=== PATIENT | female | born 2000 | race Caucasian/White ===

== ENCOUNTER 2018-01-12 21:23 | Emergency (ER) | payer BC ==
[~2018-01-12] VITALS: Ht 165.1 cm; Wt 65.4 kg
[2018-01-12 21:31] VITALS: TEMP 37.1; Ht 165.1 cm; Wt 65.4 kg
[2018-01-12] MEDS ORDERED: DEXT30LI4 PO (22:52)
--- NOTE | 2018-01-12 23:16 | DIAGNOSTIC IMAGING REPORT ---
CHEST ONE VIEW PORTABLE CLINICAL HISTORY: cough, fever COMPARISON STUDY: No previous studies for comparison. FINDINGS: Lung volumes are normal. No pneumothorax or pleural effusion is noted. Cardiac size is normal. Mediastinal contours are normal. Apparent mild right lower lung airspace opacity. The left lung is clear. IMPRESSION: Suspected mild right lower lung airspace opacity which favors pneumonia. Electronically signed by: Felix Stephens M.D. 01/12/2018 11:15 PM Dictated Date/Time: 01/12/2018 11:14 PM
[2018-01-12 23:28] LABS: INFLUENZA B ANTIGEN Neg for Influ B (NEG)
[2018-01-12] MEDS ORDERED: AZITHROMYCIN 250 MG TAB PO STA (23:54)
[2018-01-13] MEDS ORDERED: AZIT-60 PO (00:05)
[2018-01-13 00:06] VITALS: BP 127/73; PULSE 85; O2SAT 100
--- NOTE | 2018-01-13 02:34 | EMERGENCY ROOM VISIT NOTE ---
History Report prepared by Manisha: Sebastian Montoay Under the Supervision of: Dr. Boubacar Patel M.D. First contact with patient: 22:33 Chief Complaint: FEVER Stated Complaint: FEVER, COUGH History of Present Illness The patient is a 17 year old female who presents to the Emergency Room with complaints of persistent fever since this evening. She reports being sick intermittently for three weeks. She states that she was waiting in line at [employer] and she became dizzy and lightheaded. Per mother, the patient had tried to gain an appointment with [facility], though was unsuccessful. She has a history of strep throat, scarlet fever, and an associated rash. She has not taken any medication today for the fever. She lost her voice for four days with no sound at all. She reports a productive cough with associated shortness of breath. She denies any history of asthma. She reports nausea after she eats. She reports some ear pain. She reports congestion. She has a history of ear infections and sinus infections. Pt denies LOC, headache, chills, diaphoresis, visual changes, neck pain, chest pain, vomiting, abdominal pain, back pain, melena, hematochezia, urinary symptoms, numbness, weakness, rash, or other complaints. Source of History: patient, parent Onset: since this evening Position: other (global) Quality: other (fever) Timing: other (persistent) Associated Symptoms: + cough, + SOB, + nausea Note: She notes dizziness and lightheadedness. She reports ear pain and congestion. Review of Systems See HPI for pertinent positives and negatives. A total of ten systems were reviewed and were otherwise negative. Past Medical & Surgical Medical Problems: (1) Strep throat/scarlet fever Surgical Problems: (1) H/O nasal septoplasty Family History Cancer Diabetes mellitus Gallbladder disease Hypertension Social History Smoking Status: Never Smoker Smokeless Tobacco Use: No Alcohol Use: occasionally Drug Use: none Marital Status: single Housing Status: lives with family, lives with roommate Occupation Status: [employer] student Current/Historical Medications Scheduled Azithromycin (Zithromax), 250 MG PO DAILY Scheduled PRN Dextromethorphan Polistirex (Delsym), 10 ML PO Q12 PRN for Cough Allergies Coded Allergies: No Known Allergies (Unverified , 08/06/16) Physical Exam Vital Signs Date Time Temp Pulse Resp B/P (MAP) Pulse Ox O2 Delivery O2 Flow Rate FiO2 01/13/18 00:06 85 16 127/73 100 Room Air 01/12/18 21:31 37.1 100 20 145/61 98 Room Air Physical Exam GENERAL: Awake, alert, non-ll appearing, no distress HEAD: Normocephalic, atraumatic. No edema. EYES: Normal conjunctiva. Sclera non-icteric. EARS: Right TM normal. Left TM normal. NOSE: Mild congestion. Post nasal drip. OROPHARYNX: Lips, tongue, and mucosa unremarkable. No erythema or exudate. NECK: Supple. No nuchal rigidity. FROM. Mild anterior adenopathy. Negative jolt accentuation test. RESPIRATORY: CTA bilaterally. No wheezes rales or rhonchi. CARDIAC: Borderline tachycardic rate. Normal rhythm. No murmurs. No rubs. GI: Soft, non distended. No tenderness to palpation. NEURO: Normal sensorium. Normal speech. SKIN: No rash or jaundice noted. Medical Decision & Procedures ER Provider Diagnostic Interpretation: Radiology results as stated below per my review and radiologist interpretation: CHEST ONE VIEW PORTABLE CLINICAL HISTORY: cough, fever COMPARISON STUDY: No previous studies for comparison. FINDINGS: Lung volumes are normal. No pneumothorax or pleural effusion is noted. Cardiac size is normal. Mediastinal contours are normal. Apparent mild right lower lung airspace opacity. The left lung is clear. IMPRESSION: Suspected mild right lower lung airspace opacity which favors pneumonia. Electronically signed by: Felix Stephens M.D. 01/12/2018 11:15 PM Dictated Date/Time: 01/12/2018 11:14 PM Laboratory Results Test 01/12/18 22:30 Influenza Type A Antigen Neg for Influ A (NEG) Influenza Type B Antigen Neg for Influ B (NEG) Laboratory results reviewed by me Medications Administered Medications (Trade) Dose Ordered Sig/Jeremiah Route Start Time Stop Time Status Last Admin Dose Admin Azithromycin (Zithromax Tab) 500 mg NOW STAT PO 01/12/18 23:54 01/12/18 23:55 DC 01/13/18 00:04 500 MG ED Course 2237: The patient was evaluated in room B2. A complete history and physical exam was performed. 3440: I reassessed the patient at this time. She is feeling better and resting comfortably. I discussed the results and treatment plan with the patient. I answered all pertaining questions that she had. She expressed understanding and verbalized agreement. The patient will be discharged home. Medical Decision Triage Nursing notes reviewed. The patient's presentation and history were concerning for fever. Etiologies such as viral syndrome, otitis, pharyngitis, pneumonia, urinary tract infection, sepsis, bacteremia, meningitis, as well as others were entertained. The patient was evaluated. A flu swab was performed and this was negative. Rapid strep testing was negative. Chest x-ray was performed and was concerning for a mild right-sided pneumonia. This would explain the patient's symptoms. Clinically the patient looks well. She was treated with Zithromax. I discussed conservative management with her and her mother. The patient and her mother felt comfortable.I gave my usual and customary discussion regarding this issue. By the evaluation outlined above other emergent etiologies such as those listed in the differential, as well as others, were deemed relatively unlikely. The patient was educated about the findings as listed above. All questions were answered and the patient was pleased with the treatment. Return instructions were outlined and the patient was discharged in stable condition. The patient was referred to her PCP for follow-up for a recheck of the current condition. Medication Reconcilliation Current Medication List: was personally reviewed by me Blood Pressure Screening Patient's blood pressure: Elevated blood pressure Blood pressure disposition: Referred to PCP Impression Primary Impression: PNA (pneumonia) Scribe Attestation The scribe's documentation has been prepared under my direction and personally reviewed by me in its entirety. I confirm that the note above accurately reflects all work, treatment, procedures, and medical decision making performed by me. Departure Information Dispostion Home / Self-Care Prescriptions Azithromycin (ZITHROMAX) 250 Mg Tab 250 MG PO DAILY, #4 TAB Prov: Boubacar Patel MD 01/13/18 Referrals No Doctor, Assigned (PCP) [facility] Forms HOME CARE DOCUMENTATION FORM, IMPORTANT VISIT INFORMATION, School Instructions Patient Instructions My [facility] Additional Instructions PNEUMONIA INSTRUCTIONS: Azithromycin(Zithromax) 250mg: Take one a day for 4 additional days. All antibiotics can cause diarrhea. If this occurs and you feel worse or it does not resolve in 1-2 days follow up with your doctor or return to the Emergency Department as this could be signs of serious underlying problems. Any medication can cause an allergic reaction, stop the pills immediately and return to the ER for rash, hives, breathing difficulties, or swelling. Acetaminophen(Tylenol) may be used for fever or pain. Use 1000mg every six hours as needed. Avoid using more than 4000mg in a 24 hour period. AND/OR Ibuprofen(Motrin, Advil) may be used for fever or pain. Use 600mg every six hours as needed. Take with food. Avoid using more than 2400mg in a 24 hour period. Do not use 2400mg per day for more than three consecutive days without physician direction. Prolonged inappropriate use can lead to stomach upset or ulcers. Controlling your fever with Tylenol and Ibuprofen as above will make you feel better. Rest and drink plenty of fluids. Avoid strenuous activity until your symptoms resolve and your breathing returns to normal. Return to the ER for chest pain, difficulty breathing, persistent fevers, vomiting, worsening of your condition, or as needed. Follow up with your primary physician in 3 days for a recheck of the current condition.
== END 2018-01-13 00:18 | disposition home or self-care (01) ==
LOC: C.EDB 21:25
DX: J18.9 Pneumonia, unspecified organism (principal); R42 Dizziness and giddiness; R11.0 Nausea; R03.0 Elevated blood-pressure reading, without diagnosis of hypertension; Z83.3 Family history of diabetes mellitus; Z82.49 Family history of ischemic heart disease and other diseases of the circulatory system; Z83.79 Family history of other diseases of the digestive system